=== PATIENT | female | born 1950 | race Caucasian/White ===

== ENCOUNTER → 2017-01-04 | Outpatient (CLI) | payer MEDICARE, BC ==
--- NOTE | 2017-01-08 07:38 | MM ---
Reason for exam: screening (asymptomatic). Last mammogram was performed 1 year ago. History: Patient is postmenopausal. Physical Findings: A clinical breast exam by your physician is recommended on an annual basis and results should be correlated with mammographic findings. MG 3D Screening Mammo W/Cad Bilateral CC and MLO view(s) were taken. Prior study comparison: December 30, 2015, bilateral MG 3d screening mammo w/cad. December 18, 2014, bilateral MG diagnostic mammo w CAD MANJINDER. The breast tissue is heterogeneously dense. This may lower the sensitivity of mammography. Finding: There is a 3mm indeterminate group of calcifications in the upper outer quadrant of the right breast. Increase in number of calcifications since December 30, 2015 and December 18, 2014. ASSESSMENT: Incomplete: need additional imaging evaluation, BI-RAD 0 RECOMMENDATION: Special view mammogram of the right breasts. [facility] will attempt to contact patient to return for supplemental views. RANDALL
== END ==
LOC: RADMAMWWP 13:46
PROVIDERS: ATTEND Family Medicine
DX: Z12.31 Encounter for screening mammogram for malignant neoplasm of breast (principal); R92.2 Inconclusive mammogram
CPT/HCPCS: 77063; G0202

== ENCOUNTER → 2017-01-16 | Outpatient (CLI) | payer MEDICARE, BC ==
--- NOTE | 2017-01-18 11:22 | MM ---
Reason for exam: additional evaluation requested from abnormal screening. Last mammogram was performed less than 1 month ago. History: Patient is postmenopausal. Physical Findings: Nurse did not find any significant physical abnormalities on exam. MG 3D Work Up W/Cad RT LM, CC with magnification, and LM with magnification view(s) were taken of the right breast. Prior study comparison: January 04, 2017, bilateral MG 3d screening mammo w/cad. December 30, 2015, bilateral MG 3d screening mammo w/cad. There are scattered fibroglandular densities. Finding: There are fine calcifications in the 9 o'clock upper outer quadrant, middle position of the right breast, 5 cm from nipple. These results were verbally communicated with the patient and result sheet given to the patient on 01/16/17. ASSESSMENT: Suspicious, BI-RAD 4 RECOMMENDATION: Surgical consultation and stereotactic core biopsy of the right breast. Called Dr. Gallagher with mammographic findings and has scheduled an appointment for the patient for 02/08/17 at 9:[address] Up. Biopsy scheduled for 01/24/17 at 2:20. PRELIMINARY REPORT CALLED AND FAXED TO DR. UP ON 01/18/17 AT 300/TP.
== END | disposition home or self-care (01) ==
LOC: RADMAMWWP 10:57
PROVIDERS: ATTEND Family Medicine
DX: R92.8 Other abnormal and inconclusive findings on diagnostic imaging of breast (principal)
CPT/HCPCS: G0206; G0279

== ENCOUNTER → 2017-02-19 | Day surgery (SDC) | payer MEDICARE, BC ==
[2017-02-19 13:39] VITALS: RESP 16; BMI 27.0
[2017-02-19 15:04] VITALS: BP 129/82; PULSE 80; TEMP 98.6
--- NOTE | 2017-02-19 15:52 | MM ---
EXAMINATION TYPE: MG stereo VAD BX RT DATE OF EXAM: 02/19/2017 COMPARISON: Prior mammogram January 16, 2017 and older studies. CLINICAL HISTORY: Abnormal mammogram. TECHNIQUE: Stereotactic guided core biopsy of right breast. FINDINGS: The procedure of stereotactic guided core biopsy was explained to the patient. Benefits, alternatives, and risks were discussed. An informed consent was then obtained. The shortness pathway for biopsy was chosen. Shortness pathway was lateral approach. I performed the localization, then performed the remainder of the procedure. Lidocaine is used as anesthetic into the skin and subcutaneous tissue. Lidocaine with epinephrine is used as anesthetic into the deeper tissue. A vacuum assisted biopsy gun was used to obtain multiple core samples. The patient tolerated the procedure well without any immediate complication. The patient was kept in the radiology department for short stay after the procedure and then discharged home in stable condition. Targeted calcifications are identified in specimen mammogram. Post biopsy mammogram shows the clip to appear in satisfactory position relative to the targeted area of concern on the preprocedure images. IMPRESSION: SUCCESSFUL, UNCOMPLICATED STEREOTACTIC GUIDED CORE BIOPSY OF AREA OF CONCERN IN THE RIGHT BREAST, FULL PATHOLOGY RESULTS TO FOLLOW. Low to intermediate index of suspicion noted at time of procedure. Pathology Results: Benign BREAST, RIGHT SITE A, CORE BIOPSY: FIBROCYSTIC CHANGES INCLUDING CYSTS AND CALCIUM OXALATE CRYSTALS AND FIBROSIS. Recommendation Follow up mammogram of the right breast in 6 months. RANDALL
== END ==
LOC: RADMAMWWP 13:18
PROVIDERS: ATTEND Surgery
DX: N60.31 Fibrosclerosis of right breast (principal); N64.89 Other specified disorders of breast; R92.8 Other abnormal and inconclusive findings on diagnostic imaging of breast; Z88.2 Allergy status to sulfonamides
CPT/HCPCS: 88305; 19081; A4648; J2001

== ENCOUNTER → 2018-02-25 | Outpatient (CLI) | payer MEDICARE ==
--- NOTE | 2018-02-25 09:09 | MM ---
Reason for exam: clinical finding. Last mammogram was performed 6 months ago. History: Patient is postmenopausal and history of other cancer. Benign MG stereo VAD BX RT of the right breast, February 19, 2017. Indicated problem(s): palpable abnormality in the left breast. Physical Findings: Nurse did not find any significant physical abnormalities on exam. MG 3D Diag Mammo W/Cad MANJINDER Bilateral CC and MLO view(s) were taken. Prior study comparison: August 22, 2017, right breast MG 3d diag mammo w/cad RT. January 16, 2017, right breast MG 3d work up w/cad RT. The breast tissue is heterogeneously dense. This may lower the sensitivity of mammography. Previous mammotome biopsy in the right breast. Focal asymmetry left upper MLO view, stable. These results were verbally communicated with the patient and result sheet given to the patient on 02/25/18. ASSESSMENT: Negative, BI-RAD 1 RECOMMENDATION: Routine screening mammogram of both breasts in 1 year. Manage patient on a clinical basis.
--- NOTE | 2018-02-25 09:10 | USB ---
Reason for exam: clinical finding. History: Patient is postmenopausal and history of other cancer. Benign MG stereo VAD BX RT of the right breast, February 19, 2017. US Breast LT Left complete breast ultrasound includes all four quadrants, the retroareolar region and axilla. Finding demonstrates no cystic or solid lesion seen. These results were verbally communicated with the patient and result sheet given to the patient on 02/25/18. ASSESSMENT: Negative, BI-RAD 1 RECOMMENDATION: Routine screening mammogram of both breasts in 1 year. Manage patient on a clinical basis.
--- NOTE | 2018-02-25 12:14 | BD ---
EXAMINATION TYPE: Axial Bone Density DATE OF EXAM: 02/25/2018 COMPARISON: NONE CLINICAL HISTORY: Height: 64 Weight: 155.6 FRAX RISK QUESTIONS: Alcohol (3 or more units per day): no Family History (Parent hip fracture): no Glucocorticoids (More than 3mos): no (Ex: prednisone, prednisolone, methylprednisolone, dexamethasone, and hydrocortisone). History of Fracture in Adulthood: yes Secondary Osteoporosis: 1. Type 1 Diabetes: no 2. Hyperthyroidism: no 3. Menopause before 45: no 4. Malnutrition: no 5. Chronic liver disease: no Rheumatoid Arthritis: no Current Tobacco Use: no RISK FACTORS HISTORY OF: Family History of Osteoporosis: unsure Active: yes Diet low in dairy products/other sources of calcium: no Postmenopausal woman: age 55 Lost more than 2 inches in height since high school: no Frequent falls: no MEDICATIONS: none Additional History: EXAM MEASUREMENTS: Bone mineral densitometry was performed using the [employer] System. Bone mineral density as measured about the Lumbar spine is: ----- L1-L4(G/cm2): 0.836 T Score Values are as follows: ----- L2: -2.8 ----- L3: -2.7 ----- L4: -2.8 ----- L1-L4: -2.9 Bone mineral density has: decreased -5.0 % since study of: 11.10.2010 Bone mineral density about the R hip (g/cm2): 0.782 Bone mineral density about the L hip (g/cm2): 0.829 T Score values are as follows: -----R Neck: -1.8 -----L Neck: -1.5 -----R Total: -1.2 -----L Total: -1.4 Bone mineral density has: decreased -2.8 % since study of: 11.10.2010 IMPRESSION: Osteoporosis (T Score less than -2.5). There is increased fracture risk and therapy is usually indicated based on age. Re-Screen 1-2 years. NOTE: T-SCORE=SD OF THE YOUNG ADULT MEAN.
== END | disposition home or self-care (01) ==
LOC: RADMAMWWP 07:02
PROVIDERS: ATTEND Family Medicine
DX: N63.20 Unspecified lump in the left breast, unspecified quadrant (principal); N63.10 Unspecified lump in the right breast, unspecified quadrant; M81.0 Age-related osteoporosis without current pathological fracture; Z78.0 Asymptomatic menopausal state
CPT/HCPCS: 77080; 77066; 76641; G0279; 77062

== ENCOUNTER → 2019-10-13 | Outpatient (CLI) | payer MEDICARE ==
--- NOTE | 2019-10-13 11:23 | MM ---
Reason for exam: screening (asymptomatic). Last mammogram was performed 1 year and 7 months ago. History: Patient is postmenopausal and history of other cancer. Benign MG stereo VAD BX RT of the right breast, February 19, 2017. Physical Findings: A clinical breast exam by your physician is recommended on an annual basis and results should be correlated with mammographic findings. MG 3D Screening Mammo W/Cad Bilateral CC and MLO view(s) were taken. Prior study comparison: February 25, 2018, bilateral MG 3d diag mammo w/cad MANJINDER. August 22, 2017, right breast MG 3d diag mammo w/cad RT. There are scattered fibroglandular densities. Benign appearing bilateral calcifications. No suspicious abnormality. No significant changes when compared with prior studies. ASSESSMENT: Benign, BI-RAD 2 RECOMMENDATION: Routine screening mammogram of both breasts in 1 year.
== END | disposition home or self-care (01) ==
LOC: RADMAMWWP 09:58
PROVIDERS: ATTEND Family Medicine
DX: Z12.31 Encounter for screening mammogram for malignant neoplasm of breast (principal)
CPT/HCPCS: 77063; 77067

== ENCOUNTER → 2019-10-27 | Outpatient (CLI) | payer MEDICARE ==
--- NOTE | 2019-10-28 09:00 | ECHOF ---
Referral Reason:R00.2 palpitations MEASUREMENTS -------- HEIGHT: 162.6 cm WEIGHT: 70.8 kg BP: RVIDd: 2.9 cm (< 3.3) IVSd: 1.1 cm (0.6 - 1.1) LVIDd: 4.6 cm (3.9 - 5.3) LVPWd: 1.1 cm (0.6 - 1.1) IVSs: 1.7 cm LVIDs: 2.7 cm LVPWs: 1.6 cm LA Diam: 3.1 cm (2.7 - 3.8) LAESV Index (A-L): 20.54 ml/m Ao Diam: 3.0 cm (2.0 - 3.7) AV Cusp: 1.9 cm (1.5 - 2.6) MV EXCURSION: 12.690 mm (> 18.000) MV EF SLOPE: 67 mm/s (70 - 150) EPSS: 0.3 cm MV E Uche: 0.89 m/s MV DecT: 219 ms MV A Uche: 1.00 m/s MV E/A Ratio: 0.88 RAP: 5.00 mmHg RVSP: 27.35 mmHg FINDINGS -------- Sinus rhythm. This was a technically good study. The left ventricular size is normal. There is borderline concentric left ventricular hypertrophy. Overall left ventricular systolic function is normal with, an EF between 60 - 65 %. Sigmoid Septum The right ventricle is normal in size. Normal LA size by volume 22+/-6 ml/m2. The right atrium is normal in size. Interatrial and interventricular septum intact. The aortic valve is trileaflet and appears structurally normal. Trace amount of aortic regurgitatio n. Mild mitral regurgitation is present. The tricuspid valve appears structurally normal. Trace/mild (physiologic) pulmonic regurgitation. The aortic root size is normal. Normal inferior vena cava with normal inspiratory collapse consistent with estimated right atrial pre ssure of 5 mmHg. There is no pericardial effusion. CONCLUSIONS -------- 1. Sinus rhythm. 2. This was a technically good study. 3. The left ventricular size is normal. 4. There is borderline concentric left ventricular hypertrophy. 5. Overall left ventricular systolic function is normal with, an EF between 60 - 65 %. 6. Sigmoid Septum 7. The right ventricle is normal in size. 8. Normal LA size by volume 22+/-6 ml/m2. 9. The right atrium is normal in size. 10. Interatrial and interventricular septum intact. 11. The aortic valve is trileaflet and appears structurally normal. 12. Trace amount of aortic regurgitation. 13. Mild mitral regurgitation is present. 14. The tricuspid valve appears structurally normal. 15. Trace/mild (physiologic) pulmonic regurgitation. 16. The aortic root size is normal. 17. Normal inferior vena cava with normal inspiratory collapse consistent with estimated right atrial pressure of 5 mmHg. 18. There is no pericardial effusion. CREDIT COLLECTOR: Alicja Monzon RDCS
--- NOTE | 2019-12-01 09:25 | EM ---
EVENT MONITOR Patient was monitored between October 27 and November 18, 2019. The rhythm strip revealed sinus mechanism. There was episode of paroxysmal atrial tachycardia and short bursts that could represent paroxysmal atrial tachycardia, although the possibility of short burst of atrial fibrillation cannot be totally excluded. VINICIUS / BLAYNE: [id number] /
== END | disposition home or self-care (01) ==
LOC: RADECHMAIN 11:52
PROVIDERS: ATTEND Family Medicine
DX: I34.0 Nonrheumatic mitral (valve) insufficiency (principal); I37.1 Nonrheumatic pulmonary valve insufficiency; R00.2 Palpitations
CPT/HCPCS: 93270; 93306

== ENCOUNTER → 2021-12-23 | Outpatient (CLI) | payer MEDICARE ==
--- NOTE | 2021-12-26 11:57 | MM ---
Reason for exam: screening (asymptomatic). Last mammogram was performed 2 years and 2 months ago. History: Patient is postmenopausal and history of other cancer. Benign MG stereo VAD BX RT of the right breast, February 19, 2017. Physical Findings: A clinical breast exam by your physician is recommended on an annual basis and results should be correlated with mammographic findings. MG 3D Screening Mammo W/Cad Bilateral CC and MLO view(s) were taken. Prior study comparison: October 13, 2019, bilateral MG 3d screening mammo w/cad. February 25, 2018, bilateral MG 3d diag mammo w/cad MANJINDER. The breast tissue is heterogeneously dense. This may lower the sensitivity of mammography. Stable benign calcifications. There is no discrete abnormality. No significant changes when compared with prior studies. ASSESSMENT: Benign, BI-RAD 2 RECOMMENDATION: Routine screening mammogram of both breasts in 1 year.
== END | disposition home or self-care (01) ==
LOC: RADMAMWWP 10:00
PROVIDERS: ATTEND Family Medicine
DX: Z12.31 Encounter for screening mammogram for malignant neoplasm of breast (principal); Z78.0 Asymptomatic menopausal state
CPT/HCPCS: 77063; 77067

== ENCOUNTER → 2022-01-09 | Outpatient (CLI) | payer MEDICARE ==
--- NOTE | 2022-01-09 11:04 | BD ---
EXAMINATION TYPE: Axial Bone Density DATE OF EXAM: 01/09/2022 COMPARISON: 02-25-2018 CLINICAL HISTORY: 71 years year old Female. 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 Menopause before 45: 55 RISK FACTORS HISTORY OF: Active: YES Diet low in dairy products/other sources of calcium: YES Postmenopausal woman: 55 MEDICATIONS: Additional Medications: SINGULAIR, VITAMIN D Additional History: EXAM MEASUREMENTS: Bone mineral densitometry was performed using the [employer] System. Bone mineral density as measured about the Lumbar spine is: ----- L1-L4(G/cm2): 0.806 T Score Values are as follows: ----- L1: -3.2 ----- L2: -2.6 ----- L3: -3.2 ----- L4: -3.5 ----- L1-L4: -3.1 Bone mineral density has: DECREASED -5.1% since study of: 02-25-2018 Bone mineral density about the R hip (g/cm2): 0.764 Bone mineral density about the L hip (g/cm2): 0.757 T Score values are as follows: -----R Neck: -2.0 -----L Neck: -2.0 -----R Total: -1.4 -----L Total: -1.8 Bone mineral density has: DECREASED -3.9% since study of: 02-25-2018 FRAX%s: The graph provided illustrates a 12.3% chance for a major osteoporotic fx and a 2.6% chance f or the hips probability for fx in 10 years time. IMPRESSION: Osteoporosis (T Score less than -2.5). There is increased fracture risk and therapy is usually indicated based on age. Re-Screen 1-2 years. NOTE: T-SCORE=SD OF THE YOUNG ADULT MEAN.
== END | disposition home or self-care (01) ==
LOC: RADBDWWP 09:32
PROVIDERS: ATTEND Family Medicine
DX: M81.0 Age-related osteoporosis without current pathological fracture (principal); Z78.0 Asymptomatic menopausal state
CPT/HCPCS: 77080

== ENCOUNTER → 2023-10-29 | Outpatient (CLI) | payer MEDICARE ==
--- NOTE | 2023-10-30 13:31 | MM ---
Reason for Exam: Screening (asymptomatic). Last mammogram was performed 1 year(s) and 10 month(s) ago. Patient History: Menarche at age 12. First Full-Term at age 19. Left ovary removed at age 65. Right ovary removed at age 65. Postmenopausal. Other cancer. 02/19/2017, Benign Core Biopsy on the right side. Risk Values: Dasia 5 year model risk: 1.5%. NCI Lifetime model risk: 3.7%. Prior Study Comparison: 02/25/2018 Bilateral Diagnostic Mammogram, [facility]. 10/13/2019 Bilateral Screening Mammogram, [facility]. 12/23/2021 Bilateral Screening Mammogram, [facility]. Tissue Density: The breast tissue is heterogeneously dense. This may lower the sensitivity of mammography. Findings: Analyzed By CAD. There is no suspicious group of microcalcifications or new suspicious mass. Benign-appearing calcifications bilaterally. Overall Assessment: Benign, BI-RAD 2 Management: Screening Mammogram of both breasts in [address] [facility] will attempt to contact patient to return for supplemental views and ultrasound if indicated. Patient should continue monthly self-breast exams. A clinical breast exam by your physician is recommended on an annual basis. This exam should not preclude additional follow-up of suspicious palpable abnormalities. Note on Dasia scores and lifetime risk: 1. A Dasia score greater than 3% is considered moderate risk. If this is the case, consider specialist referral to assess eligibility for a risk reducing agent. 2. If overall lifetime risk for the development of breast cancer is 20% or higher, the patient may qualify for future screening with alternating mammogram and breast MRI. Electronically signed and approved by: Antonio Schreiber DO
== END | disposition home or self-care (01) ==
LOC: RADMAMWWP 10:54
PROVIDERS: ATTEND Family Medicine
DX: Z12.31 Encounter for screening mammogram for malignant neoplasm of breast (principal); Z78.0 Asymptomatic menopausal state
CPT/HCPCS: 77063; 77067

== ENCOUNTER → 2025-03-17 | Outpatient (CLI) | payer MEDICARE ==
--- NOTE | 2025-03-17 13:33 | XR ---
EXAMINATION TYPE: XR ribs LT DATE OF EXAM: 03/17/2025 1:03 PM COMPARISON: 04/28/2013. 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 FINDINGS: Limited exam of the ribs secondary to patient body habitus. The ribs have a normal appearan ce. No evidence of fracture. Overall, the lungs are clear. The cardiac silhouette is normal in size . The remaining osseous structures are intact. IMPRESSION: Slightly limited exam above the ribs, No displaced fracture definitely visualized. If there remains c oncern consider CT imaging. [facility], , 03/17/2025 1:30 PM
== END | disposition home or self-care (01) ==
LOC: RADXRMAIN 12:39
PROVIDERS: ATTEND Family Medicine
DX: F43.11 Post-traumatic stress disorder, acute (principal)